=== PATIENT | female | born 1975 | race African-American/Black ===

== ENCOUNTER 2020-09-20 11:56 | Emergency (ER) | payer OTHER ==
[~2020-09-20] VITALS: Ht 162.6 cm; Wt 74.8 kg
--- NOTE | ~2020-09-20 | EMS ---
[address] [address] EMS Patient Care Report Name: ROSE MARY PRATT Room #: [facility] M.R.#: [id number] Admission: Attend Phys: Discharge: Date of : 75 Report #: [id number] THIS REPORT FOR: //name// Report Transmitted: 09/20/2020 11:55 EMS Care Summary [facility] Incident [id number] @ 09/20/2020 10:56 Incident Location [address] [place] [address] Patient ROSE MARY PRATT Female, 44 Years 1975 Patient Address [address] [place] [id number] Patient History Hypertension (HTN), Patient Allergies No known allergies, Patient Medications Lisinopril, Hydrochlorothiazide (Hctz), Chief Complaint dizziness Disposition Transported No Lights/Roby Dispatch Reason Sick Person Transported To [facility] Narrative DISPATCH: [id number] was emergency dispatched to [facility] for C1 sick person. [id number] immediately responded to the scene. CHIEF COMPLAINT: Pt presented sitting in office area of terminal superintendent care [address] [address] EMS Patient Care Report Name: ROSE MARY PRATT Room #: [facility]..#: [id number] Admission: Attend Phys: Discharge: Date of : 75 Report #: [id number] facility with staff assisting. pt is Alert and oriented X 4 Patient complained of dizziness and hypotension. HISTORY: Patient reports that she had sat down to do chart work and felt very dizzy. Others on scene stated that pt did not look well and they felt she was going to "pass out." Staff assessed pt's vitals and found her to be hypotensive so 911 was activated. Pt denies chest pain, did have slight shortness of breath when event started, no abdominal pain, previous episode, no factors leading up to event. Pt states she has HTN and takes medication for same but no new medications. Pt initially not wanting transport but agreed after EMS encouragement due to initial findings. Pt denies any recent illness, fever, pt has had COVID vaccine with 2nd dose in Jul 2020. ASSESSMENT: A- open/clear. B- spontaneous/adequate/non labored, pt speaks in complete sentences without distress. C- strong, regular, radial pulse, skin is warm/dry/pink without cyanosis/redness/hives/itching; LOC- GCS=15 HEAD: ISHA, Clear Speech, Negative Facial Droop or Cyanosis. NECK: Negative JVD, Accessory Muscle Use. CHEST: CBBS with equal chest rise. Negative Accessory Muscle Use, or Retractions. ABDOMEN: Soft, non-tender on palpation. Negative guarding. Pt denies N/V, diarrhea, blood in stool BACK: Not assessed. PELVIS: Intact, Negative Incontinence of bowel or bladder. EXTREMITIES: HEAD with +CMSx4. Negative pedal edema. Equal churn operator R/L. RENDERED TREATMENT: VS as above, HPI, PMH, pt assisted to cot, noted that pt's pulse increased 20 plus bmp with standing, and secured to cot with straps. Pt taken to ambulance where 12 lead ECG obtained, [address] [facility]. Pt refused IV asking that we wait until arrival at facility, pt did agree that if her blood pressure dropped again an IV could be started. Pt's blood glucose was taken by facility as we arrived showing reading of 122 mg/dl. TRANSPORT: The patient was provided brief comfortable transport, condition unchanged and vital signs stable. No additional findings were noted with continuous ongoing assessments. DESTINATION: The patient was transported to [facility] ER and delivered to ER room 4. The destination was determined by patient preference/[facility] base hospital. The patient was transferred to ER bed via sheet drag without incident, care transferred and patient report to attending nurse. Initial Vitals @11:08SpO2: 98, [facility] [address] [place] [address] EMS Patient Care Report Name: HOWARD PRATTAbilio Bhakta Room #: [facility] M.R.#: [id number] Admission: Attend Phys: Discharge: Date of : 75 Report #: [id number] @11:20P: 74,SpO2: 99,ID Suspected: false @11:13P: 77,R: 16,BP: 128/84,Pain: 0/10,GCS: 15,SpO2: 98,Revised Trauma: 12,ID Suspected: false @11:23P: 74,R: 16,BP: 118/80,Pain: 0/10,GCS: 15,SpO2: 99,Revised Trauma: 12,ID Suspected: false @11:14P: 78,R: 16,BP: 104/61,Pain: 0/10,GCS: 15,SpO2: 97,Revised Trauma: 12,ID Suspected: false @11:43P: 77,R: 16,BP: 118/75,Pain: 0/10,GCS: 15,SpO2: 98,Revised Trauma: 12,ID Suspected: false @11:07P: 69,R: 16,BP: 69/44,Pain: 0/10,GCS: 15,Temp: 97F,Glucose: 122,SpO2: 97,Revised Trauma: 10,ID Suspected: false @11:31P: 81,R: 16,BP: 124/89,Pain: 0/10,GCS: 15,SpO2: 98,Revised Trauma: 12,ID Suspected: false Assessments @11:08MENTAL:Person Oriented,Time Oriented,Place Oriented,Event Oriented,SKIN:HEENT:Eyes: Left Pupil: 4-mm,Eyes: Right Pupil: 4-mm,Head/Face: No Abnormalities,LUNG SOUNDS:General: No Abnormalities,ABDOMEN:General: No Abnormalities,PELVIS//GI:EXTREMITIES:Left Arm: No Abnormalities,Right Arm: No Abnormalities,Left Leg: No Abnormalities,Right Leg: No Abnormalities,PULSE:NEURO:No Abnormalities, Impression Hypotension Procedures @11:15Surgical Mask on PatientResponse: Unchanged@11:2012-Lead ECG Timeline 10:55,Call Received 10:55,Psap Call 10:56,Dispatched 10:57,En Route 11:00,On Scene 11:05,At Patient 11:07,BP: 69/44 M,PULSE: 69,RR: 16 R,SPO2: 97 Ox,ETCO2: ,B,PAIN: 0,GCS: 15, 11:08,BP: / M,PULSE: ,RR: R,SPO2: 98 Ox,ETCO2: ,BG: ,PAIN: ,GCS: , 11:13,BP: 128/84 M,PULSE: 77,RR: 16 R,SPO2: 98 Ox,ETCO2: ,BG: ,PAIN: 0,GCS: 15, 11:14,BP: 104/61 M,PULSE: 78,RR: 16 R,SPO2: 97 Ox,ETCO2: ,BG: ,PAIN: 0,GCS: 15, 11:15,Surgical Mask on Patient,Response: Unchanged 11:20,12-Lead ECG, 11:20,BP: / M,PULSE: 74,RR: R,SPO2: 99 Ox,ETCO2: ,BG: ,PAIN: ,GCS: , 11:23,BP: 118/80 M,PULSE: 74,RR: 16 R,SPO2: 99 Ox,ETCO2: ,BG: ,PAIN: 0,GCS: 15, 11:24,Depart Scene 11:31,BP: 124/89 M,PULSE: 81,RR: 16 R,SPO2: 98 Ox,ETCO2: ,BG: ,PAIN: 0,GCS: 15, [facility] [address] [place] [address] EMS Patient Care Report Name: ROSE MARY PRATT Yony Room #: [facility].#: [id number] Admission: Attend Phys: Discharge: Date of : 75 Report #: [id number] 11:43,BP: 118/75 M,PULSE: 77,RR: 16 R,SPO2: 98 Ox,ETCO2: ,BG: ,PAIN: 0,GCS: 15, 11:50,At Destination 12:06,Call Closed Disclaimer v1.1 Copyright 2020 [employer] This EMS Care Summary contains data elements from the applicable legal record (which may be displayed differently). It is designed to provide pertinent information for the following purposes: continuity of care, clinical quality, and state data reporting. The complete legal record is available to ED staff and administrators of the receiving hospital in [facility]'s Patient Tracker. All data is provided "as is."
[~2020-09-20 11:56] MED LIST: COZAAR 50 MG TA50 M2 PO; TOPROL XL100 MG PO
[2020-09-20 12:27] LABS: ABSOLUTE NEUTROPHILS 2.3 thou/uL (1.4-8.2); BASOPHILS 0.8 % (0.0-2.0); EOSINOPHILS 1.9 % (0.0-3.0); HEMATOCRIT 37.6 % (37.0-47.0); HEMOGLOBIN 12.5 gm/dL (12.0-15.0); LYMPHOCYTES 51.6 % (24.0-44.0); MCH 29.9 pg (26.0-34.0); MCHC 33.1 g/dL (28.0-37.0); MCV 90.4 fL (80.0-100.0); MONOCYTES 8.2 % (1.0-8.0); PLATELET COUNT 202 thou/uL (150-400); POLYS 37.5 % (36.0-66.0); RBC 4.16 mil/uL (4.20-5.00); RDW 13.2 % (10.5-14.5)
[2020-09-20] MEDS ORDERED: LISINOPRIL10 MG PO (12:35)
[2020-09-20] MEDS ORDERED: TRIAMTERENE-HC1 EAC2 PO (12:35)
[2020-09-20 12:37] LABS: ANION GAP 13 mmol/L (7-16); BUN 11 mg/dL (7-18); CALCIUM 9.4 mg/dL (8.5-10.1); CHLORIDE 98 mmol/L (98-107); CO2 26 mmol/L (21-32); CREATININE 0.9 mg/dL (0.6-1.0); GLUCOSE 132 mg/dL (74-106); POTASSIUM 3.5 mmol/L (3.5-5.1); SODIUM 137 mmol/L (136-145)
[2020-09-20 12:44] LABS: TROPONIN-I <0.06 ng/mL (<0.06)
[2020-09-20 13:09] LABS: URINE BILIRUBIN NEGATIVE (Negative); URINE BLOOD NEGATIVE (Negative); URINE CLARITY CLEAR; URINE COLOR YELLOW; URINE GLUCOSE-RANDOM* NEGATIVE (Negative); URINE KETONES NEGATIVE (Negative); URINE LEUKOCYTES-REFLEX NEGATIVE (Negative); URINE NITRITE-REFLEX NEGATIVE (Negative); URINE PROTEIN (DIPSTICK) NEGATIVE (Negative); URINE SPECIFIC GRAVITY 1.015 (1.005-1.035); URINE UROBILINOGEN 0.2 E.U./dl (0.2-1.0)
[2020-09-20 13:28] VITALS: BP 141/73
--- NOTE | 2020-09-21 11:28 | EKG ---
[address] [place] [address] ELECTROCARDIOGRAM REPORT Name: ROSE MARY PRATT Yony Room #: [facility]#: [id number] Admission: 09/20/20 Attend Phys: Discharge: 09/20/20 Date of : 75 Report #: [id number] [facility] ED Test Date: 2020-09-20 Test Time: 11:57:42 Pat Name: ROSE MARY PRATT Department: Room: Gender: F Rn Progressive Care: JCIRVIN : 1975 Requested By: Hari Walters Order Number: [id number] MD: Sawyer Still Measurements Intervals Bonnie Rate: 71 P: 46 WV: 169 QRS: 21 QRSD: 94 T: 16 QT: 376 QTc: 409 Interpretive Statements Sinus rhythm Borderline T abnormalities, anterior leads Compared to ECG 05/26/2014 08:51:34 Possible ischemia no longer present T-wave abnormality still present Electronically Signed On 09-21-2020 11:28:29 CDT by Sawyer Still [email or web address] <ELECTRONICALLY SIGNED> By: Sawyer Still MD, [facility] 09/21/20 1128 [id number] Sawyer Still MD, FACC /EPI
== END 2020-09-20 13:28 | disposition home or self-care (01) ==
LOC: ER 11:56
PROVIDERS: Nurse Practitioner
DX: I95.9 Hypotension, unspecified (principal); R55 Syncope and collapse; Z79.899 Other long term (current) drug therapy